=== PATIENT | male | born 1950 | race Caucasian/White ===

== ENCOUNTER 2020-08-06 17:08 | Emergency (ER) | payer OTHER, MEDICARE ==
[~2020-08-06] VITALS: Ht 172.7 cm; Wt 75.3 kg
[2020-08-06 18:14] LABS: BASOPHILS % (AUTO) 1 % (0-1); EOSINOPHILS % (AUTO) 1 % (1-7); LYMPHOCYTES % (AUTO) 14 % (22-44); MEAN CORPUSCULAR HEMOGLOBIN 31.2 pg (27.5-34.5); MEAN CORPUSCULAR HGB CONC 33.4 g/dL (33.2-36.2); MEAN PLATELET VOLUME 7.9 fL (7.4-10.4); MONOCYTES % (AUTO) 14 % (2-9); NEUTROPHILS % (AUTO) 70 % (42-75); PLATELET COUNT 420 x10^3/uL (130-400); RED BLOOD COUNT 3.83 x10^6/uL (4.38-5.82); RED CELL DISTRIBUTION WIDTH 13.2 % (9.4-14.8)
[2020-08-06 18:23] LABS: MD NO
[2020-08-06 18:25] LABS: ALANINE AMINOTRANSFERASE 40 U/L (12-78); ANION GAP 3 mmol/L (5-15); CALCIUM 8.5 mg/dL (8.5-10.1); CHLORIDE 106 mmol/L (98-107); CREATININE 1.06 mg/dL (0.7-1.3)
[2020-08-06 18:35] LABS: ALKALINE PHOSPHATASE 171 U/L (45-117); BILIRUBIN,TOTAL 0.4 mg/dL (0.2-1.0); TOTAL PROTEIN 7.3 g/dL (6.4-8.2); TROPONIN I < 0.015 ng/mL (0.000-0.045)
[2020-08-06] MEDS ORDERED: FUROSEMIDE 40 MG TABLET PO ONE (19:30)
[2020-08-06] MEDS ORDERED: FUROSEMIDE 40 MG TABLET ONE (19:31)
[2020-08-06 19:59] LABS: MICROSCOPIC NOT IND
--- NOTE | 2020-08-06 20:22 | NUR ---
Patient/Caregiver given discharge instructions and they have confirmed that they understand the instructions. Patient ambulatory with steady gait.
== END 2020-08-06 20:23 | disposition home or self-care (01) ==
LOC: ED 19:39
DX: R60.0 Localized edema (principal); I44.7 Left bundle-branch block, unspecified; R07.89 Other chest pain; I10 Essential (primary) hypertension; E11.9 Type 2 diabetes mellitus without complications; F17.210 Nicotine dependence, cigarettes, uncomplicated
CPT/HCPCS: 36415; 71046; 80053; 81003; 83880; 84443; 84484; 85025; 93005; 93970; 99285; 99406

== ENCOUNTER → 2020-09-19 | Outpatient (CLI) | payer BC, MEDICARE ==
[~2020-09-19] MED LIST: REGADENOSON 0.4 MG/5 ML SYRINGE ONE
== END | disposition home or self-care (01) ==
LOC: CFH 12:36
PROVIDERS: ATTEND Internal Medicine Cardiovascular Disease
DX: I08.8 Other rheumatic multiple valve diseases (principal); E11.9 Type 2 diabetes mellitus without complications; I31.3 Pericardial effusion (noninflammatory); J90 Pleural effusion, not elsewhere classified; I10 Essential (primary) hypertension; R94.31 Abnormal electrocardiogram [ECG] [EKG]; Z87.891 Personal history of nicotine dependence
CPT/HCPCS: 78452; 93017; 93306; A9502; J2785

== ENCOUNTER 2020-11-28 08:29 | Day surgery (SDC) | payer BC, MEDICARE ==
[~2020-11-28] VITALS: Ht 172.7 cm; Wt 75.0 kg
[2020-11-28 09:19] VITALS: BP 129/87
[2020-11-28] MEDS ORDERED: SODIUM CHLORIDE 0.9% 500 ML IV SCH (09:30)
[2020-11-28] MEDS ORDERED: DIPHENHYDRAMINE 50 MG/ML, 1ML IVPush ONE (09:30)
[2020-11-28] MEDS ORDERED: INSU100I28 SQ (09:33)
[2020-11-28] MEDS ORDERED: BROM5DRO3 EACHEYE (09:33)
[2020-11-28] MEDS ORDERED: LOSA25TA25 PO (09:33)
[2020-11-28] MEDS ORDERED: CARV3.1212 PO (09:33)
[2020-11-28] MEDS ORDERED: BUME1TAB21 PO (09:33)
[2020-11-28] MEDS ORDERED: CHOL10003 PO (09:33)
[2020-11-28] MEDS ORDERED: ALBU8.5H8 INH (09:33)
[2020-11-28] MEDS ORDERED: ROSU10TA2 PO (09:33)
[2020-11-28] MEDS ORDERED: GLUC-165 PO (09:33)
[2020-11-28] MEDS ORDERED: INSU100C5 SQ-INSULIN (09:33)
[2020-11-28] MEDS ORDERED: DIPHENHYDRAMINE 50 MG/ML, 1ML ONE (09:33)
[2020-11-28 09:35] LABS: BASOPHILS % (AUTO) 1 % (0-1); EOSINOPHILS % (AUTO) 3 % (1-7); LYMPHOCYTES % (AUTO) 19 % (22-44); MEAN CORPUSCULAR HGB CONC 32.7 g/dL (33.2-36.2); MEAN PLATELET VOLUME 8.1 fL (7.4-10.4); MONOCYTES % (AUTO) 15 % (2-9); NEUTROPHILS % (AUTO) 62 % (42-75); PLATELET COUNT 193 x10^3/uL (130-400); RED BLOOD COUNT 4.42 x10^6/uL (4.38-5.82); RED CELL DISTRIBUTION WIDTH 17.1 % (9.4-14.8)
[2020-11-28 09:39] LABS: MD NO
[2020-11-28 09:44] LABS: ANION GAP 5 mmol/L (5-15); CALCIUM 9.2 mg/dL (8.5-10.1); CHLORIDE 108 mmol/L (98-107)
[2020-11-28 09:48] LABS: INTERNATIONAL NORMALIZED RATIO 1.12 (0.93-1.1)
[2020-11-28] MEDS ORDERED: MIDAZOLAM 1 MG/ML, 5ML ONE ×2 (10:27→13:33)
[2020-11-28] MEDS ORDERED: FENTANYL PF 100 MCG/2ML ONE ×2 (10:27→13:33)
[2020-11-28] MEDS ORDERED: HEPARIN 1,000 UNITS/ML, 10ML ONE (10:28)
[2020-11-28] MEDS ORDERED: VERAPAMIL 2.5 MG/ML, 2ML ONE (10:28)
[2020-11-28] MEDS ORDERED: LIDOCAINE-MPF 1%, 5ML ONE (10:28)
[2020-11-28] MEDS ORDERED: SODIUM CHLORIDE 0.9% 1,000 ML IV SCH (11:30)
[2020-11-28] MEDS ORDERED: BIVALIRUDIN 250 MG ONE (13:33)
== END 2020-11-28 13:08 | disposition home or self-care (01) ==
LOC: CACL 08:29
PROVIDERS: ATTEND Internal Medicine Cardiovascular Disease
DX: I25.10 Atherosclerotic heart disease of native coronary artery without angina pectoris (principal); I25.5 Ischemic cardiomyopathy; I10 Essential (primary) hypertension; E11.9 Type 2 diabetes mellitus without complications; J44.9 Chronic obstructive pulmonary disease, unspecified; E78.5 Hyperlipidemia, unspecified; Z79.4 Long term (current) use of insulin; Z79.899 Other long term (current) drug therapy; Z72.0 Tobacco use; Z79.01 Long term (current) use of anticoagulants
CPT/HCPCS: 36415; 80048; 83880; 85025; 85610; 85730; 93458; 99156; C1769; C1894; J1200; J1644; J2250; J3010; Q9967; J0583

== ENCOUNTER → 2021-03-17 | Outpatient (CLI) | payer BC, MEDICARE ==
[~2021-03-17] MED LIST changes: +ALBU8.5H8 INH; +BROM5DRO3 EACHEYE; +BUME1TAB21 PO; +CARV3.1212 PO; +CHOL10003 PO; +GLUC-165 PO; +INSU100C5 SQ-INSULIN; +INSU100I28 SQ; +LOSA25TA25 PO; -REGADENOSON 0.4 MG/5 ML SYRINGE ONE; +ROSU10TA2 PO
== END | disposition home or self-care (01) ==
LOC: CVU 08:46
PROVIDERS: ATTEND Internal Medicine Cardiovascular Disease
DX: I65.23 Occlusion and stenosis of bilateral carotid arteries (principal); I10 Essential (primary) hypertension; E11.9 Type 2 diabetes mellitus without complications; Z87.891 Personal history of nicotine dependence
CPT/HCPCS: 93880

== ENCOUNTER 2021-04-27 13:06 | Inpatient (IN) | payer BC, MEDICARE ==
[~2021-04-27] VITALS: Ht 172.7 cm; Wt 72.5 kg
[2021-04-27 13:57] LABS: BASOPHILS % (AUTO) 1 % (0-1); EOSINOPHILS % (AUTO) 2 % (1-7); LYMPHOCYTES % (AUTO) 16 % (22-44); MEAN CORPUSCULAR HEMOGLOBIN 30.6 pg (27.5-34.5); MEAN CORPUSCULAR HGB CONC 33.4 g/dL (33.2-36.2); MEAN PLATELET VOLUME 8.7 fL (7.4-10.4); MONOCYTES % (AUTO) 16 % (2-9); NEUTROPHILS % (AUTO) 64 % (42-75); PLATELET COUNT 149 x10^3/uL (130-400); RED BLOOD COUNT 4.72 x10^6/uL (4.38-5.82); RED CELL DISTRIBUTION WIDTH 16.8 % (9.4-14.8)
[2021-04-27 14:06] LABS: ALANINE AMINOTRANSFERASE 28 U/L (12-78); ALBUMIN 3.5 g/dL (3.4-5.0); ANION GAP 7 mmol/L (5-15); CALCIUM 9.5 mg/dL (8.5-10.1); CHLORIDE 96 mmol/L (98-107); CREATININE 1.78 mg/dL (0.7-1.3)
[2021-04-27 14:10] LABS: ALKALINE PHOSPHATASE 227 U/L (45-117); TOTAL PROTEIN 8.5 g/dL (6.4-8.2); TROPONIN I < 0.015 ng/mL (0.000-0.045)
--- NOTE | 2021-04-27 19:01 | NUR ---
pt to imaging
[2021-04-27] MEDS: TEMPLATE NON-FORMULARY MED. (Bromfenac Sodium (Bromsite) 1 DROP) EACHEYE SCH (21:00)
[2021-04-27] MEDS ORDERED: TEMPLATE NON-FORMULARY MED. (Rosuvastatin Calcium** (Crestor**) 10 MG) PO SCH (21:00)
[2021-04-27] MEDS: CARVEDILOL 3.125 MG TABLET PO SCH (21:00)
[2021-04-27] MEDS ORDERED: LIDODERM 5% PATCH TD PRN (21:00)
[2021-04-27] MEDS ORDERED: POLYETHYLENE GLYCOL 17 GM PACKET PO PRN (21:00)
[2021-04-27] MEDS: BUMETANIDE 1 MG TABLET PO SCH (21:00)
[2021-04-27] MEDS: SENNA/DOCUSATE TABLET PO SCH (21:00)
[2021-04-27] MEDS ORDERED: MELATONIN 5 MG TABLET PO PRN (21:00)
[2021-04-27] MEDS ORDERED: LIDODERM 5% PATCH TD ONE (21:00)
[2021-04-27] MEDS ORDERED: ALBUTEROL HFA 90 MCG/SPRAY INH PRN (21:00)
[2021-04-27] MEDS ORDERED: ONDANSETRON 2MG/ML, 2ML IVPush PRN (21:00)
[2021-04-27] MEDS ORDERED: POTA-138 PO (22:25)
[2021-04-27] MEDS ORDERED: METO5TAB5 PO (22:32)
--- NOTE | 2021-04-27 22:32 | NUR ---
MED REC UPDATED AND VERIFIED. PTS IS TO BRING HOME MEDS THAT ARENT CARRIED HERE TOMORROW. PT STATES IS UP TO DATE ON HIS MEDS FOR TODAY AND DOES NOT NEED ANY OF THE MEDS THAT ARE ORDERED FOR TONIGHT. WILL PASS ON TO DAY TEAM IN AM THAT MED REC IS UPDATED.
--- NOTE | 2021-04-27 22:51 | NUR ---
PT REFUSING INSULIN AFTER FINGERSTICK OF 150. STATES "I WOULDN'T TAKE INSULIN AT HOME AT THAT NUMBER".
[2021-04-27] MEDS: INSULIN LISPRO 100 UNITS/ML, PEN SQ-INSULIN SCH (22:52)
--- NOTE | 2021-04-27 22:53 | NUR ---
PT MOVED TO HOSPITAL BED
[2021-04-28] MEDS ORDERED: OMNIPAQUE 350 MG/ML, 100ML BOTTLE ONE (00:02)
[2021-04-28] MEDS ORDERED: MELATONIN 5 MG TABLET ONE (02:24)
--- NOTE | 2021-04-28 03:11 | NUR ---
Report to Geovany TORRES
--- NOTE | 2021-04-28 06:53 | NUR ---
REPORT TO BRIAN CARRERA NO FURTHER QUESTIONS AT THIS TIME.
[2021-04-28] MEDS: INSULIN LISPRO 100 UNITS/ML, PEN SQ-INSULIN SCH ×4 (07:30→21:00)
--- NOTE | 2021-04-28 08:55 | NUR ---
PT GIVEN MEAL TRAY
[2021-04-28] MEDS ORDERED: LIDOCAINE 1%, 10ML ONE (08:56)
[2021-04-28] MEDS ORDERED: LOSARTAN 100 MG TAB PO SCH (09:00)
[2021-04-28] MEDS ORDERED: SENNA/DOCUSATE TABLET ONE (09:13)
[2021-04-28] MEDS ORDERED: CARVEDILOL 3.125 MG TABLET ONE (09:13)
[2021-04-28] MEDS: METOLAZONE 5 MG TABLET PO SCH (09:20)
[2021-04-28] MEDS: BUMETANIDE 1 MG TABLET PO SCH (09:21)
[2021-04-28] MEDS: CARVEDILOL 3.125 MG TABLET PO SCH ×2 (09:22→21:00)
[2021-04-28] MEDS: SENNA/DOCUSATE TABLET PO SCH ×2 (09:23→21:00)
[2021-04-28] MEDS: TEMPLATE NON-FORMULARY MED. (Bromfenac Sodium (Bromsite) 1 DROP) EACHEYE SCH (09:29)
[2021-04-28] MEDS: INSULIN GLARGINE 100 UNITS/ML, PEN SQ-INSULIN SCH (09:30)
--- NOTE | 2021-04-28 09:40 | NUR ---
PT STATED HE DOES NOT TAKE THE LANTUS WHEN HIS AM BLOOD SUGAR IS BELOW 100. PT STATED DEPENDING ON WHAT HIS BLOOD SUGAR IS IN THE AFTERNOON, HE DOSES IT HIMSELF. PT HAS EATEN THIS AM. PT RESTING CALMLY IN BED. WILL CONTINUE TO MONITOR.
--- NOTE | 2021-04-28 12:52 | NUR ---
PT SITTING UP IN BED EATING LUNCH. PT CAME IN TO VISIT WITH PT. NO STTED NEEDS AT THIS TIME.
[2021-04-28] MEDS ORDERED: POLYETHYLENE GLYCOL 17 GM PACKET ONE (13:08)
[2021-04-28] MEDS: POLYETHYLENE GLYCOL 17 GM PACKET PO SCH ×3 (13:13→21:00)
--- NOTE | 2021-04-28 14:28 | NUR ---
PT BP DROPPING LOW. PER PT , THE COJESUSAR DROPS HIS BP. HOSPITALIST MADE AWARE, ORDERS PLACED. PT HAS NOT REPORTED ANY S/S OF HYPOTENSION AT THIS TIME. WILL CONTINUE TO MONITOR.
[2021-04-28] MEDS ORDERED: LACTATED RINGERS 500 ML IVBOLUS ONE (14:30)
[2021-04-28] MEDS ORDERED: ALBUMIN HUMAN 25% 100 ML IV ONE (14:30)
[2021-04-28 15:03] LABS: BASOPHILS % (AUTO) 1 % (0-1); EOSINOPHILS % (AUTO) 2 % (1-7); LYMPHOCYTES % (AUTO) 15 % (22-44); MEAN CORPUSCULAR HEMOGLOBIN 30.1 pg (27.5-34.5); MEAN CORPUSCULAR HGB CONC 33.2 g/dL (33.2-36.2); MEAN PLATELET VOLUME 8.5 fL (7.4-10.4); MONOCYTES % (AUTO) 15 % (2-9); NEUTROPHILS % (AUTO) 68 % (42-75); PLATELET COUNT 147 x10^3/uL (130-400); RED BLOOD COUNT 4.44 x10^6/uL (4.38-5.82); RED CELL DISTRIBUTION WIDTH 16.9 % (9.4-14.8)
[2021-04-28 15:09] LABS: ANION GAP 8 mmol/L (5-15); CALCIUM 8.6 mg/dL (8.5-10.1); CHLORIDE 96 mmol/L (98-107)
--- NOTE | 2021-04-28 15:15 | NUR ---
Pt found with change in rhythm, hypotensive, knees knotched, IVF infusing. Pt has no complaints skin signs warm, dry. STAT EKG done
[2021-04-28] MEDS ORDERED: POTASSIUM CHLORIDE 20 MEQ PACKET ONE (16:07)
[2021-04-28] MEDS ORDERED: ACETAMINOPHEN 325 MG TABLET ONE (16:11)
[2021-04-28] MEDS: ACETAMINOPHEN 325 MG TABLET PO PRN ×2 (16:12→23:25)
--- NOTE | 2021-04-28 16:32 | NUR ---
PT RESTING CALMLY IN BED. PT NO C/O PAIN. PT ASKING TO GO TO THE RESTROOM. PT UNHOOKED. PT ABLE TO ABMULATE STEADILY TO THE BATHROOM.
[2021-04-28] MEDS ORDERED: DEXAMETHASONE 4 MG/ML, 1ML ONE (16:38)
[2021-04-28] MEDS ORDERED: POTASSIUM CHLORIDE 20 MEQ PACKET PO SCH (17:00)
--- NOTE | 2021-04-28 17:25 | NUR ---
report to alba mike
[2021-04-28] MEDS ORDERED: INSULIN LISPRO SINGLE DOSE, ER SQ-INSULIN ONE ×2 (17:27→17:40)
[2021-04-28 18:22] VITALS: BP 95/64
[2021-04-28 18:27] VITALS: BP 95/64
[2021-04-28] MEDS: ATORVASTATIN 40 MG TABLET PO SCH (21:00)
[2021-04-28] MEDS: BROMFENAC SODIUM HOMEOPHTH SCH (21:00)
[2021-04-29] VITALS (11 sets, daily range): BP systolic 64–110; BP diastolic 39–73
[2021-04-29] MEDS ORDERED: LACTATED RINGERS 1,000 ML IVBOLUS ONE ×2 (02:00→14:00)
[2021-04-29] MEDS: INSULIN LISPRO 100 UNITS/ML, PEN SQ-INSULIN SCH ×4 (07:00→21:45)
[2021-04-29 07:25] LABS: BASOPHILS % (AUTO) 1 % (0-1); CHLORIDE 99 mmol/L (98-107); EOSINOPHILS % (AUTO) 2 % (1-7); LYMPHOCYTES % (AUTO) 18 % (22-44); MEAN CORPUSCULAR HEMOGLOBIN 30.2 pg (27.5-34.5); MEAN CORPUSCULAR HGB CONC 33.3 g/dL (33.2-36.2); MEAN PLATELET VOLUME 8.7 fL (7.4-10.4); MONOCYTES % (AUTO) 16 % (2-9); NEUTROPHILS % (AUTO) 63 % (42-75); PLATELET COUNT 142 x10^3/uL (130-400); RED BLOOD COUNT 4.38 x10^6/uL (4.38-5.82); RED CELL DISTRIBUTION WIDTH 16.5 % (9.4-14.8)
[2021-04-29] MEDS: METOLAZONE 5 MG TABLET PO SCH (07:30)
[2021-04-29 07:36] LABS: ANION GAP 11 mmol/L (5-15); CALCIUM 9.2 mg/dL (8.5-10.1); CREATININE 2.02 mg/dL (0.7-1.3)
[2021-04-29] MEDS ORDERED: METOLAZONE 2.5 MG TABLET ONE (08:17)
[2021-04-29] MEDS: BROMFENAC SODIUM HOMEOPHTH SCH ×2 (08:46→21:00)
[2021-04-29] MEDS: CARVEDILOL 3.125 MG TABLET PO SCH ×2 (08:46→21:00)
[2021-04-29] MEDS: SENNA/DOCUSATE TABLET PO SCH ×2 (09:13→21:42)
[2021-04-29] MEDS: POTASSIUM CHLORIDE 20 MEQ TAB.ER.PRT PO SCH ×2 (09:14→17:32)
[2021-04-29] MEDS: POLYETHYLENE GLYCOL 17 GM PACKET PO SCH ×3 (09:14→21:43)
[2021-04-29] MEDS: INSULIN GLARGINE 100 UNITS/ML, PEN SQ-INSULIN SCH (09:14)
[2021-04-29] MEDS: ACETAMINOPHEN 325 MG TABLET PO PRN (14:24)
[2021-04-29] MEDS: ATORVASTATIN 40 MG TABLET PO SCH (21:00)
[2021-04-30 01:01] VITALS: BP 93/58
[2021-04-30] MEDS: ACETAMINOPHEN 325 MG TABLET PO PRN ×3 (04:00→21:02)
[2021-04-30 05:16] VITALS: BP 117/71
[2021-04-30] MEDS: LEVOTHYROXINE 50 MCG TABLET PO SCH (06:06)
[2021-04-30 06:41] LABS: ANION GAP 12 mmol/L (5-15); CHLORIDE 101 mmol/L (98-107); CREATININE 2.53 mg/dL (0.7-1.3)
[2021-04-30] MEDS: INSULIN LISPRO 100 UNITS/ML, PEN SQ-INSULIN SCH ×4 (07:00→21:02)
[2021-04-30] MEDS: BROMFENAC SODIUM HOMEOPHTH SCH ×2 (08:19→21:00)
[2021-04-30 08:46] VITALS: BP 117/77
[2021-04-30] MEDS: INSULIN GLARGINE 100 UNITS/ML, PEN SQ-INSULIN SCH (09:00)
[2021-04-30] MEDS: CARVEDILOL 3.125 MG TABLET PO SCH ×2 (09:13→20:32)
[2021-04-30] MEDS: SENNA/DOCUSATE TABLET PO SCH ×2 (09:13→19:26)
[2021-04-30] MEDS: POLYETHYLENE GLYCOL 17 GM PACKET PO SCH ×3 (09:13→19:26)
[2021-04-30 14:50] VITALS: BP 112/79
[2021-04-30 18:20] VITALS: BP 99/63
[2021-04-30] MEDS: ATORVASTATIN 40 MG TABLET PO SCH (21:02)
[2021-05-01] MEDS: ACETAMINOPHEN 325 MG TABLET PO PRN ×5 (01:15→21:40)
[2021-05-01 01:38] VITALS: BP 109/73
[2021-05-01 05:28] LABS: BASOPHILS % (AUTO) 0 % (0-1); EOSINOPHILS % (AUTO) 4 % (1-7); LYMPHOCYTES % (AUTO) 17 % (22-44); MEAN CORPUSCULAR HGB CONC 32.8 g/dL (33.2-36.2); MEAN PLATELET VOLUME 8.5 fL (7.4-10.4); MONOCYTES % (AUTO) 18 % (2-9); NEUTROPHILS % (AUTO) 61 % (42-75); PLATELET COUNT 148 x10^3/uL (130-400)
[2021-05-01 05:36] LABS: ALBUMIN 2.7 g/dL (3.4-5.0); ANION GAP 6 mmol/L (5-15); CALCIUM 8.9 mg/dL (8.5-10.1); CHLORIDE 104 mmol/L (98-107)
[2021-05-01] MEDS: LEVOTHYROXINE 50 MCG TABLET PO SCH (05:51)
[2021-05-01] MEDS: INSULIN LISPRO 100 UNITS/ML, PEN SQ-INSULIN SCH ×4 (07:00→20:30)
[2021-05-01 07:07] VITALS: BP 114/79
[2021-05-01] MEDS: INSULIN GLARGINE 100 UNITS/ML, PEN SQ-INSULIN SCH (09:00)
[2021-05-01] MEDS: SENNA/DOCUSATE TABLET PO SCH ×2 (09:00→20:20)
[2021-05-01] MEDS: POLYETHYLENE GLYCOL 17 GM PACKET PO SCH ×3 (09:00→20:20)
[2021-05-01] MEDS: BROMFENAC SODIUM HOMEOPHTH SCH (09:00)
[2021-05-01] MEDS: CARVEDILOL 3.125 MG TABLET PO SCH ×2 (09:12→20:19)
[2021-05-01 13:32] VITALS: BP 100/65
[2021-05-01 18:31] VITALS: BP 103/67
[2021-05-01] MEDS: ATORVASTATIN 40 MG TABLET PO SCH (21:40)
[2021-05-02 00:13] VITALS: BP 117/74
[2021-05-02] MEDS: ACETAMINOPHEN 325 MG TABLET PO PRN ×2 (02:54→08:45)
[2021-05-02] MEDS: LEVOTHYROXINE 50 MCG TABLET PO SCH (05:58)
[2021-05-02 06:37] LABS: ANION GAP 8 mmol/L (5-15); CALCIUM 9.2 mg/dL (8.5-10.1); CHLORIDE 104 mmol/L (98-107)
[2021-05-02 06:39] LABS: CREATININE 1.61 mg/dL (0.7-1.3)
[2021-05-02 07:14] VITALS: BP 109/62
[2021-05-02] MEDS: CARVEDILOL 3.125 MG TABLET PO SCH (08:17)
[2021-05-02] MEDS: INSULIN LISPRO 100 UNITS/ML, PEN SQ-INSULIN SCH (08:17)
[2021-05-02] MEDS: SENNA/DOCUSATE TABLET PO SCH (08:47)
[2021-05-02] MEDS: POLYETHYLENE GLYCOL 17 GM PACKET PO SCH (08:47)
[2021-05-02] MEDS: INSULIN GLARGINE 100 UNITS/ML, PEN SQ-INSULIN SCH (08:47)
[2021-05-02] MEDS: BROMFENAC SODIUM HOMEOPHTH SCH (08:47)
[2021-05-02] MEDS ORDERED: LEVO50TA PO (09:02)
== END 2021-05-02 11:25 | disposition home or self-care (01) | DRG 186 ==
LOC: ED 18:22 → SUATTDRO 20:30 → EDIP 20:31 → 4WST 04-28 18:02
PROVIDERS: ADMIT Internal Medicine; ATTEND Family Medicine
PROC: 0W9B3ZZ Drainage of Left Pleural Cavity, Percutaneous Approach (ICD-10-PCS; principal; 2021-04-28)
DX: J90 Pleural effusion, not elsewhere classified (principal); N17.0 Acute kidney failure with tubular necrosis; I50.42 Chronic combined systolic (congestive) and diastolic (congestive) heart failure; J98.11 Atelectasis; E03.9 Hypothyroidism, unspecified; E11.22 Type 2 diabetes mellitus with diabetic chronic kidney disease; E87.6 Hypokalemia; I25.10 Atherosclerotic heart disease of native coronary artery without angina pectoris; N18.30 Chronic kidney disease, stage 3 unspecified; Z66 Do not resuscitate; I95.9 Hypotension, unspecified; M54.2 Cervicalgia; Z87.891 Personal history of nicotine dependence; Z72.89 Other problems related to lifestyle
CPT/HCPCS: 36415; 72050; 74018; 83986; 89051; 99285; J3490; 32555; 71045; 71275; 76770; 80048; 80053; 80069; 82962; 83615; 83735; 83880; 84100; 84443; 84484; 85025; 87070; 87205; 88112; 88305; 93005; 93306; G0378; J7120; Q9967; J1815